=== PATIENT | female | born 1950 | race Caucasian/White ===

== ENCOUNTER → 2019-05-02 | Day surgery (SDC) | payer BC ==
[~2019-05-02] MED LIST: Lactated Ringers 1,000 ML IV SCH; Propofol 200 MG/20 ML SDV IV ONE
--- NOTE | 2019-05-05 08:50 | OR ---
DATE OF OPERATION: 05/02/2019 PREOPERATIVE DIAGNOSIS: SCREENING COLONOSCOPY. POSTOPERATIVE DIAGNOSIS: SCREENING COLONOSCOPY. SURGEON: Pan Roca MD PROCEDURE: FULL-LENGTH COLONOSCOPY WITH FORCEPS POLYP REMOVAL X1, BIOPSY X1. ANESTHESIA: MAC via [employer]. COMPLICATIONS: None. SPECIMEN: 1. A small sessile polyp, hepatic flexure. 2. Sigmoid biopsy x1, likely lipoma. FINDINGS: 1. Full-length colonoscopy. 2. Gilbert-diverticulosis, mild. 3. Sessile polyp, hepatic flexure, less than 0.5 cm. 4. Small nodule, sigmoid colon, likely lipoma. RECOMMENDATIONS: Followup colonoscopy in 5 years. INDICATIONS: Ms. Caballero was seen by her primary provider, SANJUANITA Little, in [place] and sent for a screening colonoscopy. DESCRIPTION OF PROCEDURE: The patient was prepped and draped, placed in the left lateral decubitus position. A lubricated Olympus colonoscope was inserted and ultimately advanced to the cecum. The patient was quite tortuous and very small, she was very tricky scope, but we safely passed, visualized the ileocecal valve and appendiceal orifice. The bowel prep was excellent. Upon withdrawal the scope, the cecum and ascending colon appeared benign. Right at the hepatic flexure, patient had a very small flat sessile polyp, probably 2-3 mm, removed in its entirety with a forceps. The rest of the transverse colon was benign as was the descending colon. In the sigmoid area, the patient had scattered diverticula, there were a few over in the right colon as well consistent with a gilbert diverticular in appearance. No inflammatory changes seen and severity was very mild. At around 25-30 cm in the distal sigmoid colon, patient had a small yellow-colored nodule in the distal sigmoid, which was biopsied and appears to be a lipoma. The rest of the rectosigmoid area was benign. Rectal vault was unremarkable. Retroflexion of scope in the rectum showed no perianal lesions. Air was suctioned and scope removed without complication. [facility] MADDIE/ANA /[id number]
== END ==
LOC: CC.SDS 09:35 → EDBD 09:45
PROVIDERS: ATTEND Family Medicine
DX: Z12.11 Encounter for screening for malignant neoplasm of colon (principal); K63.5 Polyp of colon; K57.30 Diverticulosis of large intestine without perforation or abscess without bleeding; K63.89 Other specified diseases of intestine; M85.80 Other specified disorders of bone density and structure, unspecified site; Z80.0 Family history of malignant neoplasm of digestive organs
CPT/HCPCS: 45380; J2704; J7120